=== PATIENT | female | born 1960 | race Caucasian/White ===

== ENCOUNTER 2020-09-10 18:25 | Emergency (ER) | payer SELFPAY ==
[2020-09-10 18:33] VITALS: BP 192/78; PULSE 105; RESP 18; TEMP 36.9; O2SAT 98
--- NOTE | 2020-09-10 18:37 | ED.DENTAL ---
HPI - Dental/Oral General Chief complaint: Dental/Oral Stated complaint: jaw pain/swelling Time Seen by Provider: 09/10/20 18:29 History of Present Illness HPI Narrative: Patient is a 60-year-old female who presents ER with dental pain. Located right lower jaw. Began earlier today and began swelling this evening. No difficulty breathing or swallowing. No fevers or chills. Denies trauma. Related Data Allergies Allergy/AdvReac Type Severity Reaction Status Date / Time bacitracin Allergy Unknown Unknown Verified 09/10/20 18:42 neomycin Allergy Unknown Unknown Verified 09/10/20 18:42 polymyxin B Allergy Unknown Unknown Verified 09/10/20 18:42 Xckyggq-Iye-Uyq Reductase Allergy Unknown Unknown Verified 09/10/20 18:42 Inhibitor Sulfa (Sulfonamide Allergy Unknown Unknown Verified 09/10/20 18:42 Antibiotics) sulfamethoxazole Allergy Unknown Unknown Unverified 09/10/20 18:42 trimethoprim Allergy Unknown Unknown Unverified 09/10/20 18:42 Review of Systems Constitutional: Constitutional: Denies chills and Denies fever(s) ENT: Denies dysphagia Comments: Dental pain Respiratory: Respiratory: Denies cough and Denies dyspnea PMFSH Past Medical History Medical History (Updated 09/10/20 @ 18:46 by Earnest Galindo MD) Hypertension Surgical History Surgical History (Updated 09/10/20 @ 18:43 by Earnest Galindo MD) H/O section Social History Social History Gender identity (if verbalized by the patient): Female Exam Narrative: Exam Narrative: GENERAL: Well-appearing, well-nourished, and in no acute distress. HEAD: Normocephalic, atraumatic. ENT: Mucous membranes moist. Swelling right lower jaw where tooth #28/29 would be located however there currently missing. No obviously drainable abscess. NEURO: N Alert and oriented x3. PSYCH: Normal mood and affect. Discharge Plan Discharge Clinical Impression: Abscess, dental Patient Disposition: Home, Self-Care Condition: Stable Instructions: Antibiotic Form, Dental Abscess (ED) Additional Instructions: Return the ER if you have chest pain or shortness of breath, you cannot keep down food or water, you have fever 100.4 ?F, you have additional concerns. Prescriptions: New hydrocodone-acetaminophen 5-325 mg tablet 1 tablet PO Q6H PRN (Reason: pain) Qty: 12 RF: 0 amoxicillin-pot clavulanate [Augmentin] 875-125 mg tablet 1 tablet PO Q12H Qty: 20 RF: 0 Follow-up/Referrals: Dental Referral Line [Outside] - 3 Days UNKNOWN,DOCTOR [Primary Care Provider] -
== END 2020-09-10 18:59 | disposition home or self-care (01) ==
PROVIDERS: Emergency Provider Emergency Medicine
DX: K04.7 Periapical abscess without sinus (principal)
CPT/HCPCS: 99283